=== PATIENT | male | born 1955 | race African-American/Black ===

== ENCOUNTER 2016-10-04 03:16 | Emergency (ER) | payer MEDICARE ==
[2016-10-04] MEDS ORDERED: AMOXicillin 250 MG CAP ONE (03:31)
[2016-10-04] MEDS ORDERED: HYDROcodone/Acetaminophen 5/325 mg Tablet ONE (03:31)
== END 2016-10-04 03:42 | disposition home or self-care (01) ==
LOC: NAV ERS 03:16
DX: K08.89 Other specified disorders of teeth and supporting structures (principal); E11.9 Type 2 diabetes mellitus without complications; I10 Essential (primary) hypertension; Z79.899 Other long term (current) drug therapy; Z79.84 Long term (current) use of oral hypoglycemic drugs
CPT/HCPCS: 99282

== ENCOUNTER 2024-04-07 09:35 | Emergency (ER) | payer MEDICARE, SELFPAY | END 2024-04-07 11:00 | disposition home or self-care (01) | LOC: NAV ERS 09:35 | DX: S46.912A Strain of unspecified muscle, fascia and tendon at shoulder and upper arm level, left arm, initial encounter (principal); M75.102 Unspecified rotator cuff tear or rupture of left shoulder, not specified as traumatic; E11.9 Type 2 diabetes mellitus without complications; I10 Essential (primary) hypertension; Z79.84 Long term (current) use of oral hypoglycemic drugs; Z79.899 Other long term (current) drug therapy; X50.1XXA Overexertion from prolonged static or awkward postures, initial encounter; Y93.89 Activity, other specified | CPT/HCPCS: 99283 ==